=== PATIENT | female | born 1970 | race Caucasian/White ===

== ENCOUNTER → 2016-07-14 | Day surgery (SDC) | payer OTHER ==
[~2016-07-14] MED LIST: KETOROLAC TROMETHAMINE 30 MG/ML (IVP) VIAL IV PUSH ONE; LACTATED RINGER'S 1000 ML INJ 1,000 ML ONE; MIDAZOLAM HCL 2 MG/2 ML VIAL ONE; ONDANSETRON HCL 4 MG/2 ML VIAL IV PUSH ONE; PROPOFOL 200 MG/20 ML AMP IV ONE; ceFAZolin INJ 1,000 MG VIAL ONE
--- NOTE | 2016-07-14 00:20 | HHI.HP ---
HPI Chief Complaint menometrorrhagia, dysmenorrhea, fibroids, pelvic pain Date Seen: Jul 14, 2016 Travel History International Travel<30 Days: No Contact w/Intl Traveler<30Days: No Known Affected Area: No History of Present Illness HPI Patient is a 45 year old female with a long history of heavy menstrual flow and painful cramps. She reports worsening pain and heavier menstrual flow lasting longer. She has requested surgical treatment. Para: 0 : 1 Miscarriage: 0 : 1 History Past Medical History Medical History: Denies Significant Hx Obstetric History Obstetric History One ; 1 elective . Family History Family History: Negative Social History Alcohol Use: No Tobacco Use: No Substance Abuse: No Allergies-Medications (Allergen,Severity, Reaction): Coded Allergies: No Known Allergies (Unverified , 07/14/16) Narrative Medication Vitussin Review of Systems General / Constitutional: No: Fever, Weight Gain, Chills, Other Eyes: No: Diploplia, Blurred Vision, Visual changes, Pain, Photophobia HENT: No: Headaches, Vertigo, Lightheadedness Cardiovascular: No: Irregular Rhythm, Chest Pain or Discomfort, Palpitations, Tachycardia, Syncope, Varicosities, Edema, Cyanosis Respiratory: No: Cough, Short of Breath, Other Gastrointestinal: No: Nausea, Vomiting, Diarrhea Genitourinary: Pelvic Pain, Menorrhagia, Vaginal Bleeding, No: Decreased Urinary Output, Oliguria Musculoskeletal: No: Limited ROM, Weakness, Cramping, Edema, Pain Skin: No Rash, No Itching, No Dryness, No Lumps, No Change in Pigmentation, No Change in Nails, No Alopecia, No Lesions Neurologic: No: Weakness, Dizziness, Syncope, Focal Abnormalities, Coordination Problem, Headache, Slurred Speech, Seizures Psychiatric: No: Depression, Suicidal Ideations, Homicidal Ideation Endocrine: No: Heat Intolerance, Cold Intolerance, Polydipsia, Polyuria, Other Physical Exam Narrative GENERAL: Well-nourished, well-developed patient. SKIN: Warm and dry. HEAD: Normocephalic and atraumatic. EYES: No scleral icterus. No injection or drainage. ENT: No nasal drainage noted. Mucous membranes pink. Airway patent. NECK: Supple, trachea midline. No JVD. CARDIOVASCULAR: Regular rate and rhythm without murmurs, gallops, or rubs. RESPIRATORY: Breath sounds equal bilaterally. No accessory muscle use. BREASTS: Bilateral exam showed no masses , no retractions, no nipple discharge. ABDOMEN/GI: Abdomen soft, non-tender, bowel sounds present, no rebound, no guarding GENITOURINARY: External Genitalia: intact and normal in appearance Uterus: normal size, no adnexal masses EXTREMITIES: No cyanosis or edema. BACK: Nontender without obvious deformity. No CVA tenderness. NEUROLOGICAL: Awake and alert. Motor and sensory grossly within normal limits. Five out of 5 muscle strength in all muscle groups. Normal speech. Data Data Vital Signs Reviewed: Yes Assessment/Plan Problem List: (1) DUB (dysfunctional uterine bleeding) (2) Menometrorrhagia (3) Fibroids, intramural (4) Acute pelvic pain, female Assessment and Plan 1. reviewed surgical procedure: hysteroscopy, D&C, endometrial ablation 2. discussed the R/B/A of the procedure including bleeding, infection, damage to internal organs if uterine perforation occurs 3. discussed the possibility of needing further treatment / surgery 4. informed consent was obtained; the patient's questions were answered; she verbalized understanding Tanya Encarnacion MD Jul 14, 2016 00:19
--- NOTE | 2016-08-18 15:18 | PD.OP ---
Operative Report Date of Surgery: Jul 14, 2016 Preoperative Diagnosis: (1) DUB (dysfunctional uterine bleeding) (2) Menometrorrhagia (3) Fibroids, intramural (4) Acute pelvic pain, female Postoperative Diagnosis: (1) DUB (dysfunctional uterine bleeding) (2) Menometrorrhagia (3) Fibroids, intramural (4) Acute pelvic pain, female Procedure: 1. hysteroscopy 2. D&C 3. endometrial ablation Anesthesia: General Surgeon: Tanya Encarnacion Tube Worker(s): Staff Operation and Findings: IVF: 900 ml LR + IV antibiotics given prior to surgery UO: 50 ml EBL: < 50 ml Findings: normal uterine cavity Specimens: endometrial curettings Complications: none Condition: stable Disposition: PACU Description of the procedure: The risks, benefits and alternatives of the procedure were discussed with the patient. Her questions were answered. The patient signed informed consent and wished to proceed. She was taken to the operating room with her IV running. She was placed in the supine position and was given general anesthesia without difficulties or complications. The patient was placed in the dorsal lithotomy position and was prepped and draped in the usual sterile fashion. A bivalve speculum was introduced inside the patient's vagina. The anterior aspect of the cervix was grasped with a single tooth tenaculum for manipulation. The cervix was carefully dilated; the uterus sounded to 9 cm and the cervix was measured to 3 cm. A 5 mm Myosure hysteroscope was introduced inside the patient's uterus. The cavity was noted to be within normal limits. A careful curettage was done with a sharp curet. The tissues were sent to pathology. Endometrial ablation was done following [employer] protocol without any difficulties or complications (settings: width 5.0 cm, length 6.0 cm, power 165). All the instruments were removed from the patient's uterus. A figure eight stitch was placed at the tenaculum site for hemostasis. All the instruments were removed from the patient's vagina. She tolerated the procedure well; she was successfully awaken from general anesthesia and was transferred to PACU in stable condition. Note: I discussed the surgical findings and surgical procedures with patient's . His questions were answered. He verbalized understanding and agreement to the procedures done. Tanya Encarnacion MD Aug 18, 2016 15:18
== END | disposition home or self-care (01) ==
LOC: ESDC 09:39
PROVIDERS: ATTEND Obstetrics & Gynecology
DX: N92.1 Excessive and frequent menstruation with irregular cycle (principal); D25.9 Leiomyoma of uterus, unspecified; R10.2 Pelvic and perineal pain; N94.6 Dysmenorrhea, unspecified; N93.8 Other specified abnormal uterine and vaginal bleeding
CPT/HCPCS: 00952; 58563; 88305; J0690; J1885; J2250; J2405; J3010; J7120